=== PATIENT | male | born 1980 | race Caucasian/White ===

== ENCOUNTER 2019-06-13 08:23 | Emergency (ER) | payer SELFPAY ==
[~2019-06-13] VITALS: Wt 78.0 kg
[~2019-06-13 08:23] MED LIST: CYCL10TA7 PO; HYDR-4011 PO; HYDR1CAP PO; IBUP-1542 PO; MED4DP PO; NAPR-985 PO
[2019-06-13 08:27] VITALS: BP 131/86; PULSE 86; RESP 18; Wt 78.0 kg
[2019-06-13] MEDS ORDERED: KETOROLAC 60 MG INJ IM STA (08:51)
[2019-06-13] MEDS ORDERED: DEXAMETHASONE 10 MG/ML 1 ML INJ IM ONE (09:00)
== END 2019-06-13 10:34 | disposition home or self-care (01) ==
LOC: FTE 08:23
DX: M54.12 Radiculopathy, cervical region (principal)
CPT/HCPCS: 73030; J1100; J1885; 96372